=== PATIENT | male | born 1995 | race Caucasian/White ===

== ENCOUNTER 2018-06-27 11:36 | Emergency (ER) | payer OTHER ==
[2018-06-27] MEDS ORDERED: ASPIRIN 81 MG CHEWABLE TABLET ONE (12:35)
--- NOTE | 2018-06-27 13:02 | RAD REPORT ---
EXAM DESCRIPTION: RAD - Chest Pa And Lat (2 Views) - 06/27/2018 12:56 pm CLINICAL HISTORY: Chest pain COMPARISON: None. TECHNIQUE: PA and lateral views of the chest were obtained. FINDINGS: The lungs are clear. Heart size is normal and central vasculature is within normal limit s. No pleural effusion or pneumothorax seen. No acute bony finding noted. No aortic abnormality. IMPRESSION: No acute cardiopulmonary process.
[2018-06-27 14:15] LABS: BUN Blood Urea Nitrogen 11 mg/dL (7-18); Bicarbonate 28 mmol/L (21-32); CKMB Creatine Kinase MB < 1.0 ng/mL (0.3-3.6); Creatine Phosphokinase 68 U/L (39-308); Glucose Level 101 mg/dL (74-106); Magnesium 2.2 mg/dL (1.8-2.4); Potassium 4.1 mmol/L (3.5-5.1); Sodium Level 137 mmol/L (136-145); Troponin (Emerg Dept Use Only) < 0.02 ng/mL (0.0-0.045)
--- NOTE | 2018-06-27 16:30 | EDPHYS ---
Physician Documentation [facility] Name: Micheal Mcclelland Age: 23 yrs Sex: Male : 1995 Arrival Date: 06/27/2018 Time: 11:37 Bed 17 Private MD: Tam Yeh H ED Physician George Yu HPI: 06/27 14:32 This 23 yrs old Male presents to ER via Ambulatory with complaints of Chest Pain, kb Dizziness. 14:32 The patient or guardian reports chest pain that is located primarily in the anterior kb chest wall, left. The pain does not radiate. Associated signs and symptoms: The patient has no apparent associated signs or symptoms. The chest pain is described as a pressure. Duration: The patient or guardian reports multiple episodes, that are intermittent, with no pattern. Modifying factors: The symptoms are alleviated by nothing. the symptoms are aggravated by nothing. Severity of pain: At its worst the pain was mild in the emergency department the pain has resolved. The patient has not experienced similar symptoms in the past. The patient has not recently seen a physician. Intermittent chest pressure since Monday. No pain at this time. Denies shortness of breath, nausea. Reports increased stress at work. Historical: - Allergies: 11:57 No Known Allergies; hj - Home Meds: 11:57 lisinopril 10 mg Oral tab 1 tab once daily [Active]; hj - PMHx: 11:57 Hypertension; hj - PSHx: 11:57 ACL repair; hj - Immunization history:: Adult Immunizations up to date. - Social history:: Smoking status: Patient/guardian denies using tobacco, Patient uses alcohol, occasionally. - Ebola Screening: : Patient negative for fever greater than or equal to 101.5 degrees Fahrenheit, and additional compatible Ebola Virus Disease symptoms Patient denies exposure to infectious person Patient denies travel to an Ebola-affected area in the 21 days before illness onset. ROS: 14:33 Constitutional: Negative for fever, chills, and weight loss, ENT: Negative for injury, kb pain, and discharge, Neck: Negative for injury, pain, and swelling, Respiratory: Negative for shortness of breath, cough, wheezing, and pleuritic chest pain, Abdomen/GI: Negative for abdominal pain, nausea, vomiting, diarrhea, and constipation, : Negative for injury, bleeding, discharge, and swelling, MS/Extremity: Negative for injury and deformity, Skin: Negative for injury, rash, and discoloration, Neuro: Negative for headache, weakness, numbness, tingling, and seizure. 14:33 Cardiovascular: Positive for chest pain, Negative for edema, orthopnea, palpitations, paroxysmal nocturnal dyspnea. Exam: 14:33 Constitutional: This is a well developed, well nourished patient who is awake, alert, kb and in no acute distress. Head/Face: Normocephalic, atraumatic. Chest/axilla: Normal chest wall appearance and motion. Nontender with no deformity. No lesions are appreciated. Cardiovascular: Regular rate and rhythm with a normal S1 and S2. No gallops, murmurs, or rubs. Normal PMI, no JVD. No pulse deficits. Respiratory: Lungs have equal breath sounds bilaterally, clear to auscultation and percussion. No rales, rhonchi or wheezes noted. No increased work of breathing, no retractions or nasal flaring. Abdomen/GI: Soft, non-tender, with normal bowel sounds. No distension or tympany. No guarding or rebound. No evidence of tenderness throughout. Skin: Warm, dry with normal turgor. Normal color with no rashes, no lesions, and no evidence of cellulitis. MS/ Extremity: Pulses equal, no cyanosis. Neurovascular intact. Full, normal range of motion. Neuro: Awake and alert, GCS 15, oriented to person, place, time, and situation. Cranial nerves II-XII grossly intact. Motor strength 5/5 in all extremities. Sensory grossly intact. Cerebellar exam normal. Normal gait. Vital Signs: 11:59 BP 152 / 88; Pulse 81; Resp 18; Temp 97.9(TE); Pulse Ox 100% on R/A; Weight 122.47 kg; hj Height 5 ft. 10 in. (177.80 cm); Pain 3/10; 13:30 BP 145 / 86; Pulse 85; Resp 18; Pulse Ox 100% on R/A; hj 14:35 BP 122 / 82; Pulse 80; Resp 18; Pulse Ox 100% on R/A; hj 15:43 BP 125 / 80; Pulse 84; Resp 18; Pulse Ox 100% on R/A; hj 16:29 BP 113 / 76; Pulse 85; Resp 18; Pulse Ox 100% on R/A; hj 16:33 BP 107 / 76; Pulse 84; Resp 18; Pulse Ox 100% on R/A; Pain 0/10; hj 11:59 Body Mass Index 38.74 (122.47 kg, 177.80 cm) MDM: 12:02 Patient medically screened. kb 14:33 Data reviewed: vital signs, nurses notes. Data interpreted: Pulse oximetry: on room air kb is 100 %. Interpretation: normal. 16:27 Counseling: I had a detailed discussion with the patient and/or guardian regarding: the kb historical points, exam findings, and any diagnostic results supporting the discharge/admit diagnosis, lab results, radiology results, the need for outpatient follow up, a family practitioner, to return to the emergency department if symptoms worsen or persist or if there are any questions or concerns that arise at home. 06/27 15:11 Order name: Basic Metabolic Panel; Complete Time: 15:11 EDWI 06/27 15:11 Order name: Creatine Phosphokinase; Complete Time: 15:11 EDWI 06/27 15:11 Order name: CKMB Creatine Kinase MB; Complete Time: 15:12 EDMS 06/27 15:12 Order name: Troponin (Emerg Dept Use Only); Complete Time: 15:12 EDWI 06/27 15:13 Order name: Magnesium; Complete Time: 15:13 EDWI 06/27 15:21 Order name: Troponin (emerg Dept Use Only) 06/27 12:02 Order name: EKG - Nurse/Tech; Complete Time: 12:06 06/27 13:03 Order name: RAD; Complete Time: 13:05 EDWI 06/27 15:21 Order name: EKG - Nurse/Tech; Complete Time: 15:35 06/27 16:24 Order name: Troponin (Emerg Dept Use Only); Complete Time: 16:27 EDMS Administered Medications: 12:28 Drug: Aspirin Chewable Tablet 324 mg Route: PO; 12:30 Follow up: Response: No adverse reaction Disposition: 16:51 Co-signature as Attending Physician, George Yu MD. Chart complete. rn Disposition: 06/27/18 16:27 Discharged to Home. Impression: Chest pain, unspecified. - Condition is Stable. - Discharge Instructions: Nonspecific Chest Pain, [id number]. - Medication Reconciliation Form, Thank You Letter, Antibiotic Education, Prescription Opioid Use form. - Follow up: Emergency Department; When: As needed; Reason: Worsening of condition. Follow up: Private Physician; When: 2 - 3 days; Reason: Recheck today's complaints, Continuance of care, Re-evaluation by your physician. Signatures: Dispatcher [employer] EDMS Denisse Tate, SCENE PAINTER-C SCENE PAINTER-Ckb George Yu MD MD rn Joaquin, Henry, RN RN hj Corrections: (The following items were deleted from the chart) 16:34 16:27 06/27/2018 16:27 Discharged to Home. Impression: Chest pain, unspecified. hj Condition is Stable. Forms are Medication Reconciliation Form, Thank You Letter, Antibiotic Education, Prescription Opioid Use. Follow up: Emergency Department; When: As needed; Reason: Worsening of condition. Follow up: Private Physician; When: 2 - 3 days; Reason: Recheck today's complaints, Continuance of care, Re-evaluation by your physician. kb
--- NOTE | 2018-06-27 16:30 | ER ---
Nurse's Notes [facility] Name: Micheal Mcclelland Age: 23 yrs Sex: Male : 1995 Arrival Date: 06/27/2018 Time: 11:37 Bed 17 Private MD: Tam Yeh H Diagnosis: Chest pain, unspecified Presentation: 06/27 11:54 Presenting complaint: Patient states: i was watching football last Monday on a couch, when suddenly i felt that my heart rate is raising and i felt a pressure like chest pain; denies SOB; reports numbness on the R arm; reports non radiating pain; hx of anxiety but not taking meds; hx of HTN;. Transition of care: patient was not received from another setting of care. Onset of symptoms was June 24, 2018. Risk Assessment: Do you want to hurt yourself or someone else? Patient reports no desire to harm self or others. Initial Sepsis Screen: Does the patient meet any 2 criteria? No. Patient's initial sepsis screen is negative. Does the patient have a suspected source of infection? No. Patient's initial sepsis screen is negative. Care prior to arrival: None. 11:54 Method Of Arrival: Ambulatory 11:54 Acuity: YAMILA 3 hj Triage Assessment: 11:58 General: Appears in no apparent distress. uncomfortable, Behavior is calm, cooperative, hj appropriate for age. Pain: Complains of pain in chest Pain does not radiate. Pain currently is 3 out of 10 on a pain scale. Quality of pain is described as pressure, Pain began 2-3 days ago. Is intermittent. EENT: No signs and/or symptoms were reported regarding the EENT system. Neuro: Level of Consciousness is awake, alert, obeys commands, Oriented to person, place, time, situation, Appropriate for age. Cardiovascular: Capillary refill < 3 seconds Patient's skin is warm and dry. Cardiovascular: Reports palpitations. Respiratory: Airway is patent Respiratory effort is even, unlabored, Respiratory pattern is regular, symmetrical. GI: No signs and/or symptoms were reported involving the gastrointestinal system. : No signs and/or symptoms were reported regarding the genitourinary system. Derm: No signs and/or symptoms reported regarding the dermatologic system. Musculoskeletal: No signs and/or symptoms reported regarding the musculoskeletal system. Historical: - Allergies: 11:57 No Known Allergies; hj - Home Meds: 11:57 lisinopril 10 mg Oral tab 1 tab once daily [Active]; hj - PMHx: 11:57 Hypertension; hj - PSHx: 11:57 ACL repair; hj - Immunization history:: Adult Immunizations up to date. - Social history:: Smoking status: Patient/guardian denies using tobacco, Patient uses alcohol, occasionally. - Ebola Screening: : Patient negative for fever greater than or equal to 101.5 degrees Fahrenheit, and additional compatible Ebola Virus Disease symptoms Patient denies exposure to infectious person Patient denies travel to an Ebola-affected area in the 21 days before illness onset. Screenin:59 Abuse screen: Denies threats or abuse. Denies injuries from another. Nutritional hj screening: No deficits noted. Tuberculosis screening: No symptoms or risk factors identified. Fall Risk None identified. Assessment: 12:01 Reassessment: see triage for assessment;. hj 12:15 Reassessment: provider in room;. hj 13:30 Reassessment: Patient and/or family updated on plan of care and expected duration. Pain hj level reassessed. Patient is alert, oriented x 3, equal unlabored respirations, skin warm/dry/pink. awaiting results and POC; Patient states feeling better. Patient states symptoms have improved. 14:35 Reassessment: Patient and/or family updated on plan of care and expected duration. Pain hj level reassessed. Patient is alert, oriented x 3, equal unlabored respirations, skin warm/dry/pink. for possible D/C;. 15:43 Reassessment: Patient and/or family updated on plan of care and expected duration. Pain hj level reassessed. Patient is alert, oriented x 3, equal unlabored respirations, skin warm/dry/pink. 2nd set of trop sent;. 16:26 Reassessment: Patient and/or family updated on plan of care and expected duration. Pain hj level reassessed. Patient is alert, oriented x 3, equal unlabored respirations, skin warm/dry/pink. 2nd set of troponin resulted with negative result;. Vital Signs: 11:59 BP 152 / 88; Pulse 81; Resp 18; Temp 97.9(TE); Pulse Ox 100% on R/A; Weight 122.47 kg; hj Height 5 ft. 10 in. (177.80 cm); Pain 3/10; 13:30 BP 145 / 86; Pulse 85; Resp 18; Pulse Ox 100% on R/A; hj 14:35 BP 122 / 82; Pulse 80; Resp 18; Pulse Ox 100% on R/A; hj 15:43 BP 125 / 80; Pulse 84; Resp 18; Pulse Ox 100% on R/A; hj 16:29 BP 113 / 76; Pulse 85; Resp 18; Pulse Ox 100% on R/A; hj 16:33 BP 107 / 76; Pulse 84; Resp 18; Pulse Ox 100% on R/A; Pain 0/10; hj 11:59 Body Mass Index 38.74 (122.47 kg, 177.80 cm) hj ED Course: 11:37 Patient arrived in ED. mr 11:37 Tam Yeh DO is Private Physician. mr 11:48 Donnell Mendez, RN is Primary Nurse. hj 11:56 Triage completed. hj 11:59 Arm band placed on left wrist. hj 11:59 Patient has correct armband on for positive identification. Placed in gown. Bed in low hj position. Call light in reach. Side rails up X 1. Adult w/ patient. residential monitor on. Pulse ox on. NIBP on. 12:00 Patient maintains SpO2 saturation greater than 95% on room air. hj 12:02 Denisse Tate FNP-C is PHCP. kb 12:02 George Yu MD is Attending Physician. kb 12:04 Warm blanket given. [facility] 12:04 Initial lab(s) drawn, by ms, held in ED. Inserted saline lock: 20 gauge in right mh5 antecubital area, using aseptic technique. Blood collected. 12:55 X-ray completed. Patient tolerated procedure well. Patient moved to radiology via sw wheelchair. Patient moved back from radiology. 15:37 EKG done, by communications technician. reviewed by Denisse WALLIS. sm3 16:33 IV discontinued, intact, bleeding controlled, No redness/swelling at site. Pressure hj dressing applied. 16:34 No provider procedures requiring assistance completed. hj Administered Medications: 12:28 Drug: Aspirin Chewable Tablet 324 mg Route: PO; hj 12:30 Follow up: Response: No adverse reaction hj Outcome: 16:27 Discharge ordered by . elieser 16:34 Discharged to home ambulatory, with family. 16:34 Condition: stable 16:34 Discharge instructions given to patient, family, Instructed on discharge instructions, follow up and referral plans. Demonstrated understanding of instructions, follow-up care. 16:34 Patient left the ED. oni Signatures: Denisse Tate, BIMAL MILLER-Char Webb Jamie, Donnell Washington, ALTHEA RN Char Mendez [facility] Elvia Siddiqi [facility]
[2018-06-27 16:54] LABS: Absolute Lymphocytes (CBC) 1.3 K/uL (0.7-4.9); Absolute Monocytes 0.6 K/uL (0.1-1.3); Absolute Neutrophil 5.8 K/uL (1.8-8.0); Basophils % 0.5 % (0-1.3); Eosinophils % 0.7 % (0-4.4); Hematocrit 41.6 % (39.6-49.0); Lymphocytes % 16.8 % (15.3-44.8); MCH 30.2 pg (27.0-35.0); MCV 88.1 fL (80-100); MPV 8.7 fL (7.6-11.3); Monocytes % 7.5 % (3.3-12.3); RBC Red Blood Cell Count 4.73 M/uL (4.33-5.43)
--- NOTE | 2018-06-29 06:59 | EKG ---
Test Date: 2018-06-27 Test Time: 15:31:36 Contact Center Consultant: KEATON MEASUREMENT RESULTS: Intervals: Rate: 59 [place]: 152 QRSD: 84 QT: 412 QTc: 407 [place]: P: 36 [place]: 152 QRS: 8 T: 34 INTERPRETIVE STATEMENTS: Sinus bradycardia with sinus arrhythmia Minimal voltage criteria for LVH, may be normal variant Borderline ECG Compared to ECG 06/27/2018 12:14:39 Left ventricular hypertrophy now present Sinus rhythm no longer present ST (T wave) deviation no longer present Electronically Signed On 06-29-18 06:55:21 CDT by Fritz Archer
--- NOTE | 2018-06-29 07:00 | EKG ---
Test Date: 2018-06-27 Test Time: 12:14:39 Health Lead: MICHAEL MEASUREMENT RESULTS: Intervals: Rate: 76 NV: 168 QRSD: 88 QT: 386 QTc: 434 [place]: P: 33 NV: 168 QRS: 14 T: 34 INTERPRETIVE STATEMENTS: Normal sinus rhythm Nonspecific ST abnormality Abnormal ECG No previous ECG available for comparison Electronically Signed On 06-29-18 06:55:34 CDT by Fritz Archer
== END 2018-06-27 16:34 | disposition home or self-care (01) ==
LOC: ER 11:36
DX: R07.9 Chest pain, unspecified (principal); I10 Essential (primary) hypertension
CPT/HCPCS: 36415; 71046; 80048; 82550; 82553; 83735; 84484; 85025; 93005; 99285